=== PATIENT | male | born 1945 | race Caucasian/White ===

== ENCOUNTER → 2017-08-13 | Outpatient (CLI) | payer BC, OTHER ==
[~2017-08-13] MED LIST: ASPIRIN EC81 M1 PO; CARVEDILOL6.25 MG PO; EXFORGE PO; HYDROCHLOROTHIA25 M1 PO; ZOCOR40 MG PO
== END ==
LOC: RAD 17:12
DX: S71.102A Unspecified open wound, left thigh, initial encounter (principal); L02.416 Cutaneous abscess of left lower limb; X58.XXXA Exposure to other specified factors, initial encounter; Y93.89 Activity, other specified; Y92.89 Other specified places as the place of occurrence of the external cause; Y99.8 Other external cause status

== ENCOUNTER → 2020-01-06 | Outpatient (CLI) | payer OTHER | LOC: LAB 08:04 | PROVIDERS: ATTEND Anesthesiology | DX: Z01.812 Encounter for preprocedural laboratory examination (principal); Z11.59 Encounter for screening for other viral diseases ==